=== PATIENT | female | born 1975 | race Caucasian/White ===

== ENCOUNTER 2021-01-25 18:17 | Inpatient (IN) | payer SELFPAY ==
[~2021-01-25 18:17] MED LIST: Iopamidol-370 76% 500 ML 1 ML ONE
[2021-01-25 18:35] LABS: Bilirubin Negative (Negative); Blood, Urine Negative (Negative); Clarity Clear (Clear); Glucose, Urine (Dipstick) Normal (Negative); Ketone, Urine 10 mg/dL (Negative); Leukocyte Negative Leu/uL (Negative); Nitrite Negative (Negative); Protein, Urine (Dipstick) Negative (Neg-Trace); Urobilinogen Normal mg/dL (Less than 2); pH, Urine 6.5 (5.0-9.0)
[2021-01-25 18:45] LABS: #Eosinphils 0.1 thou/uL (0.0-0.7); #Monocytes 0.8 thou/uL (0.11-0.59); #Neutrophils 16.3 thou/uL (1.40-6.50); %Basophils 0.2 % (0.0-1.0); %Eosinophils 0.3 % (0.0-10.0); %Lymphocytes 5.2 % (21.0-51.0); %Monocytes 4.6 % (0.0-10.0); %Neutrophils 89.7 % (42.0-75.0); Hemoglobin 14.3 g/dL (12.0-16.0); Mean Corpuscular HGB CONC 33.8 g/dL (32.0-36.0); Mean Corpuscular Hemoglobin 30.1 pg (27.0-31.0); Mean Corpuscular Volume 88.9 fL (78.0-98.0); Mean Platelet Volume 6.9 fL (7.4-10.4); Platelet Count 307 thou/uL (130-400); RBC Distribution Width 11.2 % (11.5-14.5); Red Blood Cell (RBC) Count 4.75 mill/uL (4.20-5.40); White Blood Cell (WBC) Count 18.2 thou/uL (4.8-10.8)
[2021-01-25 19:05] LABS: ALT (SGPT) 12 U/L (8-55); AST (SGOT) 16 U/L (5-34); Albumin 4.5 g/dL (3.5-5.0); Alkaline Phosphatase 55 U/L (40-110); Anion Gap 13 mmol/L (10-20); BUN (Urea Nitrogen) 14 mg/dL (7.0-18.7); Bilirubin, Total 0.5 mg/dL (0.2-1.2); Calc. Creatinine Clearance 0 mL/min (70-130); Calcium 9.6 mg/dL (7.8-10.44); Carbon Dioxide 26 mmol/L (22-29); Chloride 103 mmol/L (98-107); Globulin 2.7 g/dL (2.4-3.5); Glucose 105 mg/dL (70-105); Lipase 38 U/L (8-78); Potassium 3.6 mmol/L (3.5-5.1); Protein, Total 7.2 g/dL (6.0-8.3); Sodium 138 mmol/L (136-145)
[2021-01-25 19:31] LABS: BHCG - Serum Negative (NEGATIVE); Pregs Control Background? CLEAR/WHITE (CLR/WHITE); Pregs Control Bar Appear? YES (CONTROL BAR)
[2021-01-25] MEDS ORDERED: Ketorolac Tromethamine 30 MG/ML VIAL ONE (19:40)
[2021-01-25] MEDS ORDERED: Piperacillin/Tazobactam 4.5 GM in Sodium Chloride 0.9% 100 ML IVPB SCH (20:45)
[2021-01-25 23:25] LABS: Lactic Acid 1.4 mmol/L (0.5-2.2)
[2021-01-25] MEDS ORDERED: Ondansetron PF 4 MG/2 ML Vial IVP PRN (23:45)
[2021-01-25] MEDS ORDERED: Ondansetron ODT 4 MG TAB SL PRN (23:45)
[2021-01-25] MEDS ORDERED: Morphine 4 MG/ML VIAL SLOW IVP PRN (23:49)
[2021-01-26 00:24] VITALS: BMI 31.4
[2021-01-26 04:01] VITALS: BP 96/64; TEMP 97.9
[2021-01-26] MEDS ORDERED: Fentanyl 100 MCG/2 ML VIAL ONE (06:29)
[2021-01-26] MEDS ORDERED: Lidocaine 1% w/Epinephrine 1:100K 20 ML VIAL ONE (06:44)
[2021-01-26] MEDS ORDERED: Bupivacaine 0.25% HCL 30 ML VIAL ONE (06:44)
[2021-01-26] MEDS ORDERED: Bupivacaine PF 0.5% 30 ML VIAL ONE (06:46)
[2021-01-26 07:03] LABS: SARS-CoV-2 NAA Rapid Test Not Detected (NotDetected)
[2021-01-26] MEDS ORDERED: Piperacillin/Tazobactam 3.375 GM VIAL ONE (07:32)
[2021-01-26] MEDS ORDERED: Sodium Chloride 0.9% 100 ML ONE (07:32)
[2021-01-26] MEDS ORDERED: Midazolam HCl 2 mg/2 ml Vial ONE (07:42)
[2021-01-26] MEDS ORDERED: Scopolamine 1.5 mg/72 hour Patch ONE (07:43)
[2021-01-26] MEDS ORDERED: Ondansetron PF 4 MG/2 ML Vial ONE ×2 (07:43→08:08)
[2021-01-26] MEDS ORDERED: Famotidine/PF 20 mg/2ml Vial ONE (07:43)
[2021-01-26] MEDS ORDERED: PROPOFOL 200 MG/20 ML VIAL ONE (08:08)
[2021-01-26] MEDS ORDERED: PHENYLEPHRINE-NS 100 MCG/ML 10 ML SYRINGE ONE (08:08)
[2021-01-26] MEDS ORDERED: Dexamethasone 20 MG/5 ML VIAL ONE (08:08)
[2021-01-26] MEDS ORDERED: Succinylcholine 200 MG/10 ml SYRINGE FS ONE (08:08)
[2021-01-26] MEDS ORDERED: Rocuronium Bromide 10 MG/ML (10ML VIAL) ONE (08:08)
[2021-01-26] MEDS ORDERED: Ketorolac Tromethamine 30 MG/ML VIAL ONE (08:08)
[2021-01-26] MEDS ORDERED: Lidocaine 1% PF 5 ML VIAL ONE (08:08)
[2021-01-26] MEDS ORDERED: Ondansetron ODT 8 MG TAB SL PRN (08:12)
[2021-01-26] MEDS ORDERED: Acetaminophen 500 MG TAB PO PRN (08:12)
[2021-01-26] MEDS ORDERED: traMADol HCl 50 MG TAB PO PRN (08:12)
[2021-01-26] MEDS ORDERED: Ondansetron PF 4 MG/2 ML Vial IVP PRN (08:12)
[2021-01-26] MEDS ORDERED: Ondansetron ORAL SOLN. 4 MG/5 ML UDCUP PO PRN (08:12)
[2021-01-26] MEDS ORDERED: Ibuprofen 600 MG TAB PO PRN (08:12)
[2021-01-26] MEDS ORDERED: HYDROmorphone 2 MG/ML VIAL SLOW IVP PRN (08:58)
[2021-01-26] MEDS ORDERED: Promethazine HCl 25 MG/ML VIAL IVPB PRN (08:58)
[2021-01-26] MEDS ORDERED: Promethazine HCl 25 MG/ML VIAL IM PRN (08:58)
[2021-01-26] MEDS ORDERED: Morphine 2 MG/ML VIAL ONE (09:21)
[2021-01-26] MEDS ORDERED: Famotidine/PF 20 mg/2ml Vial SLOW IVP SCH (10:15)
[2021-01-26] MEDS ORDERED: Midazolam HCl 2 mg/2 ml Vial SLOW IVP SCH (10:15)
[2021-01-26] MEDS ORDERED: Ondansetron PF 4 MG/2 ML Vial IVP SCH (10:15)
== END 2021-01-26 15:30 | disposition home or self-care (01) | DRG 343 ==
LOC: ERS 18:17 → SJJU 20:33
PROVIDERS: ADMIT Specialist; ATTEND Specialist
PROC: 0DTJ4ZZ Resection of Appendix, Percutaneous Endoscopic Approach (ICD-10-PCS; principal; 2021-01-26)
DX: K35.80 Unspecified acute appendicitis (principal); Z20.822 Contact with and (suspected) exposure to COVID-19; R63.0 Anorexia; Z88.0 Allergy status to penicillin; Z88.1 Allergy status to other antibiotic agents; Z68.31 Body mass index [BMI] 31.0-31.9, adult
CPT/HCPCS: 36415; 74177; 80053; 81003; 83605; 83690; 84703; 85025; 87040; 88304; 96365; 96375; J1100; J1885; J2250; J2270; J2405; J2543; J2704; J3010; J3490; Q9967; S0020; S0028; U0002; U0003; U0005